=== PATIENT | male | born 1975 | race African-American/Black ===

== ENCOUNTER 2017-12-21 19:34 | Emergency (ER) | payer OTHER ==
[2017-12-21] MEDS ORDERED: PHENAZOPYRIDINE HCL 200 MG TAB PO ONE (19:58)
[2017-12-21] MEDS ORDERED: KETOROLAC TROMETHAMINE 10 MG TAB PO ONE (19:58)
--- NOTE | 2017-12-21 20:07 | ED.PDOC ---
History of Present Illness - General Chief Complaint: Problem Stated Complaint: kauffman with urination Time Seen by Provider: 12/21/17 19:57 Source: patient, RN notes reviewed, Vital Signs reviewed Exam Limitations: no limitations - History of Present Illness Timing/Duration: yesterday, getting worse Quality: moderate, burning, sharpness Onset Location: suprapubic Radiation: none Activites at Onset: none Sexual intercourse history: single partner, other - has concerns over STI Improving Factors: nothing Worsening Factors: other - urination Associated Symptoms: denies symptoms, other - no testicular pain/edema/flank pain/ vomiting/ no persistent abd pain- only at end of urine stream Allergies/Adverse Reactions: Allergies NO KNOWN ALLERGY Allergy (Verified 12/21/17 20:04) Home Medications: Ambulatory Orders Ciprofloxacin [Cipro] 500 mg PO BID 21 Days #42 tab 12/21/17 Ketorolac Tromethamine [Toradol Tabs] 10 mg PO Q6H PRN #20 tab 12/21/17 Phenazopyridine HCl [Pyridium] 100 mg PO TID PRN #21 tab 12/21/17 Review of Systems - Review of Systems Constitutional: States: no symptoms reported EENTM: States: no symptoms reported Respiratory: States: no symptoms reported Cardiology: States: no symptoms reported Gastrointestinal/Abdominal: States: no symptoms reported Genitourinary: States: dysuria, frequency, pain. Denies: discharge Musculoskeletal: States: no symptoms reported Skin: States: no symptoms reported Neurological: States: no symptoms reported Endocrine: States: increased urine Hematologic/Lymphatic: States: no symptoms reported Past Medical History (General) - Patient Medical History Hx Seizures: No Hx Stroke: No Hx Dementia: No Hx Asthma: No Hx of COPD: No Hx Cardiac Disorders: No Hx Congestive Heart Failure: No Hx Pacemaker: No Hx Hypertension: No Hx Thyroid Disease: No Hx Diabetes: No Hx Gastroesophageal Reflux: No Hx Renal Disease: No Hx Cancer: No Hx of HIV: No Hx Hepatitis C: No Hx MRSA: No Surgical History: no surgical history, noncontributory, appendectomy - Vaccination History Hx Tetanus, Diphtheria Vaccination: Yes Hx Influenza Vaccination: No - Social History Hx Alcohol Use: Yes - social Family Medical History - Family History Mother Family History: Unknown Physical Exam - Physical Exam General Appearance: Alert, Comfortable, Well Developed, Well Groomed, Well Hydrated, Well Nourished Eyes, Ears, Nose, Throat Exam: PERRL/EOMI, normal ENT inspection Neck: non-tender, full range of motion Cardiovascular/Respiratory: regular rate, rhythm, no M/R/G, normal peripheral pulses Gastrointestinal/Abdominal: normal bowel sounds, non tender, soft Back Exam: normal inspection, no CVA tenderness, no vertebral tenderness Extremity: normal range of motion, non-tender, normal inspection 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 Will test for STI however no new sexual contacts. Declined treatment for STI pending GC/ Ch result. 12/21/17 20:35 12/21/17 20:04 URINE CULTURE W/COLONY COUNT Stat 12/21/17 20:22 GC CHLAMYDIA RNA,TMA Stat Laboratory Results Urine Color Yellow (Yellow) 12/21/17 20:04 Urine Appearance Sl cloudy (Clear) 12/21/17 20:04 Urine pH 5.5 (4.5-7.8) 12/21/17 20:04 Ur Specific [place] >= 1.030 (1.005-1.030) 12/21/17 20:04 Urine Protein 30 mg/dL 12/21/17 20:04 Urine Glucose (UA) Negative mg/dL (Negative) 12/21/17 20:04 Urine Ketones Trace mg/dL (NEGATIVE) 12/21/17 20:04 Urine Blood Small (Negative) H 12/21/17 20:04 Urine Nitrite Negative 12/21/17 20:04 Urine Bilirubin Negative (NEGATIVE) 12/21/17 20:04 Urine Urobilinogen 0.2 mg/dL (0.2-1.0) 12/21/17 20:04 Ur Leukocyte Esterase Small (Negative) H 12/21/17 20:04 Urine RBC 3-5 /hpf H 12/21/17 20:04 Urine WBC Tntc /hpf H 12/21/17 20:04 Ur Epithelial Cells 0 /hpf 12/21/17 20:04 Urine Bacteria 2+ H 12/21/17 20:04 Departure - Departure Clinical Impression: Prostatitis, acute Urinary tract infection Qualifiers: Urinary tract infection type: site unspecified Hematuria presence: without hematuria Qualified Code(s): N39.0 - Urinary tract infection, site not specified Time of Disposition: 20:24 Disposition: Discharge to Home or Self Care Condition: Excellent Departure Forms: ED Discharge - Pt. Copy, Patient Portal Self Enrollment Instructions: DI for Urinary Tract Infection (UTI) Diet: resume usual diet Activity: increase activity as tolerated Prescriptions: Ciprofloxacin [Cipro] 500 mg PO BID 21 Days #42 tab Ketorolac Tromethamine [Toradol Tabs] 10 mg PO Q6H PRN #20 tab PRN Reason: Pain Phenazopyridine HCl [Pyridium] 100 mg PO TID PRN #21 tab PRN Reason: Pain Home Medications: Ambulatory Orders Ciprofloxacin [Cipro] 500 mg PO BID 21 Days #42 tab 12/21/17 Ketorolac Tromethamine [Toradol Tabs] 10 mg PO Q6H PRN #20 tab 12/21/17 Phenazopyridine HCl [Pyridium] 100 mg PO TID PRN #21 tab 12/21/17
[2017-12-21 20:18] VITALS: O2SAT 97
[2017-12-21] MEDS ORDERED: CIPROFLOXACIN 500 MG TAB (ER DISPENSE) PO ONE (20:23)
[2017-12-21 20:46] VITALS: BP 154/82; TEMP 98.4
== END 2017-12-21 20:46 | disposition home or self-care (01) ==
LOC: ER 19:34
DX: N39.0 Urinary tract infection, site not specified (principal); N41.9 Inflammatory disease of prostate, unspecified